=== PATIENT | female | born 1980 | race Caucasian/White ===

== ENCOUNTER 2024-12-13 22:29 | Emergency (ER) | payer SELFPAY ==
[2024-12-13 22:31] VITALS: BP 146/103; PULSE 91; RESP 17; TEMP 36.3; O2SAT 100
--- OUTSIDE RECORDS SUMMARY | 2024-12-14 00:12 | XMS_ITS ---
Author Organization Unknown ENCOUNTERS Encounter Performer Location Date Diagnosis Diagnosis Status Pre Admit Donkathy Santos [facility] [address] [place] [address] [id number] Emergency [facility] [address] [place] [address] [id number] *Note: Encounters from your own facility or health system may be excluded. Allergies, Adverse Reactions, Alerts Allergen Type Severity Identification Date Penicillins drug allergy 2 [id number] strawberry food allergy 4 [id number] NSAIDS (Non-Steroidal Anti-Inflamma drug allergy 4 [id number] Medications Name Date Quantity Days Supplied GPI Number
[2024-12-14 01:08] LABS: Add Urine Microscopic? YES; Appearance Urine Cloudy (Clear); Glucose Urine UA Negative (Negative); Leukocyte Esterase Ur 3+ LEU/UL (Negative); Need Manual Microscopic Reviewed; Nitrate Urine Negative (Negative); Specific Grav Ur 1.020 (1.001-1.035)
[2024-12-14 01:18] LABS: Hematocrit 33.6 % (37.0-47.0); Hemoglobin 11.4 g/dL (12.0-15.0); Immature Granulocyte Percent A 0.3 % (0-0.5); Lymphocytes Absolute Auto 1.70 K/mm3 (0.9-3.2); Mean Corpuscular HGB Conc 33.9 g/dl (32-36); Mean Corpuscular Hemoglobin 30.2 pg (26-34); Mean Corpuscular Volume 89.1 fl (80-100); Nucleated Red Blood Cells Absolute Auto 0.000 K/mm3 (0.0-0.012); Nucleated Red Blood Cells Perc 0.0 % (0.0-0.2); Platelet Count Result 284 k/mm3 (150-375); Red Blood Count 3.77 M/mm3 (4.2-5.4); White Blood Count 6.2 K/mm3 (4.5-10.0)
[2024-12-14 01:24] LABS: Alanine Aminotransferase 20 U/L (6-35); Albumin Level 4.4 g/dL (3.5-5.1); Alkaline Phosphatase 64 U/L (38-126); Anion Gap 10 mmol/L (4-12); Aspartate Amino Transferase 29 U/L (14-36); Bilirubin,Total 0.4 mg/dL (0.2-1.3); Blood Urea Nitrogen 12 mg/dL (7-17); Calcium 9.5 mg/dL (8.4-10.2); Carbon Dioxide 22 mmol/L (22-30); Chloride 103 mmol/L (98-107); Estimated CRCL calculation 109 ml/min; Estimated Glomerular Filt Rate > 60; Glucose 100 mg/dL (65-110); Potassium 4.0 mmol/L (3.4-5.0); Sodium 135 mmol/L (137-145); Total Protein 8.1 g/dL (6.3-8.2)
[2024-12-14 01:34] LABS: BEDSIDEPREGUCG Negative (Negative)
--- NOTE | 2024-12-14 01:34 | ED.FEMALEGU ---
HPI - Female Genitourinary General Chief complaint: Urogenital-Female Stated complaint: n/v/ blood in urine Time Seen by Provider: 12/13/24 23:43 History of Present Illness HPI Narrative: 44-year-old female with a history of previous kidney stones requiring stent placement. She presents the emergency room with left-sided flank pain radiating around to her left lower quadrant. States it feels very similar to her last kidney stone. She was hospitalized with last kidney stone and septic according to her 20 years ago. States she is also having some hematuria. No fever chills. No other symptoms. No traumatic injuries. Denies chance of . She was otherwise in her normal state of health. Related Data Allergies Allergy/AdvReac Type Severity Reaction Status Date / Time NSAIDS (Non-Steroidal Allergy Severe Swelling Verified 12/13/24 22:35 Anti-Inflamma of Lip/Tongue/Throat strawberry Allergy Severe Swelling Verified 12/13/24 22:35 of Lip/Tongue/Throat Penicillins AdvReac Mild Hives Verified 12/13/24 22:35 Review of Systems Review of Systems: As reviewed above in HPI Exam Narrative: GENERAL: Uncomfortable appearing but not any acute distress HEAD: [Normocephalic, atraumatic.] EYES: [PERRLA and EOMI.] ENT: Nares clear, no rhinorrhea or epistaxis. Mucous membranes moist. NECK: Supple. CHEST: [Clear to auscultation. No respiratory distress.] HEART: [Regular rate and rhythm]. No murmur heard. [Normal peripheral pulses.] ABDOMEN: [Soft, nondistended], reproducible pain left CVA and left lower quadrant, [No rigidity or guarding] EXTREMITIES: Normal range of motion. [No edema.] SKIN: Warm, dry, no rash. NEURO: [No focal deficits]. Alert and oriented [x3.] PSYCH: [Normal mood and affect.] Course Vital Signs Vital signs: Vital Signs Temperature 36.3 C L 12/13/24 22:31 Pulse Rate 91 12/13/24 22:31 Respiratory Rate 17 12/13/24 22:31 Blood Pressure 146/103 H 12/13/24 22:31 Pulse Oximetry 100 12/13/24 22:31 Oxygen Delivery Room Air 12/13/24 22:31 Temperature 36.3 C L 12/13/24 22:31 Pulse Rate 91 12/13/24 22:31 Respiratory Rate 17 12/13/24 22:31 Blood Pressure 146/103 H 12/13/24 22:31 Pulse Oximetry 100 12/13/24 22:31 Oxygen Delivery Room Air 12/13/24 22:31 MDM - Female Genitourinary MDM Narrative Medical decision making narrative: 44-year-old female with a history of previous kidney stones requiring stent placement. She presents the emergency room with left-sided flank pain radiating around to her left lower quadrant. States it feels very similar to her last kidney stone. She was hospitalized with last kidney stone and septic according to her 20 years ago. States she is also having some hematuria. No fever chills. No other symptoms. No traumatic injuries. Denies chance of . She was otherwise in her normal state of health. Patient has prescriptions for pain medications antibiotics by her primary care provider. Patient has reassuring vital signs with any fever, tachycardia or hypoxia. Normal blood pressure. Reproducible pain in the left CVA and left lower quadrant. There is very similar to her previous kidney stone and likely the source for pain today. Patient is also having hematuria which could be a sign of a kidney stone or potential cystitis or urinary tract infection. Other considerations are pyelonephritis, diverticulitis, intra-abdominal abscess. CT scan without contrast obtained, she was given Dilaudid and Zofran as well as a fluid bolus. Urinalysis, test laboratory studies ordered. Patient had interval improvement with Dilaudid but requested Benadryl which was provided IV. Patient wanted additional pain control quickly thereafter and subsequently refused CT scan multiple times despite needing diagnostic scan for continued workup and treatment. Laboratory studies showed no leukocytosis or significant anemia. Normal platelet count. Electrolytes are normal, kidney function normal, glucose and LFTs normal. Urinalysis shows some blood and 2+ bacteria but contaminated with squamous cells. Given a dose of Rocephin. test negative. Patient refused CT scan again and signed out AMA. Return instructions provided and she has pain medications and antibiotics that her primary care provider has prescribed. Medical Records Attestation: I reviewed the patient's medical records. Lab Data Attestation: I reviewed the patient's lab results. 12/14/24 01:06 12/14/24 01:06 Labs: Lab Results 12/14/24 12/14/24 12/14/24 Range/Units 00:39 00:55 01:06 WBC 6.2 (4.5-10.0) K/mm3 RBC 3.77 L (4.2-5.4) M/mm3 Hgb 11.4 L (12.0-15.0) g/dL Hct 33.6 L (37.0-47.0) % MCV 89.1 (80-100) fl MCH 30.2 (26-34) pg MCHC 33.9 (32-36) g/dl RDW 13.6 (11.5-14.5) % Plt Count 284 (150-375) k/mm3 MPV 10.0 (7.4-10.4) fl Immature Gran % (Auto) 0.3 (0-0.5) % Neut % (Auto) 55.1 (45.5-73.1) % Lymph % (Auto) 27.6 (18.3-44.2) % [place] % (Auto) 11.3 H (2.6-8.5) % Eos % (Auto) 5.2 H (0-4.4) % Baso % (Auto) 0.5 (0.2-1.2) % Lymph # (Auto) 1.70 (0.9-3.2) K/mm3 [place] # (Auto) 0.7 H (0.1-0.6) K/mm3 Eos # (Auto) 0.3 (0-0.3) K/mm3 Baso # (Auto) 0.0 (0.0-0.1) K/mm3 Abs Immat Gran (auto) 0.02 (0.00-0.031) K/mm3 Absolute Neuts (auto) 3.4 (1.3-6.7) K/mm3 Absolute Nucleated RBC 0.000 (0.0-0.012) K/mm3 Nucleated RBC % 0.0 (0.0-0.2) % Sodium 135 L (137-145) mmol/L Potassium 4.0 (3.4-5.0) mmol/L Chloride 103 (98-107) mmol/L Carbon Dioxide 22 (22-30) mmol/L Anion Gap 10 (4-12) mmol/L BUN 12 (7-17) mg/dL Creatinine 0.71 (0.7-1.0) mg/dL Estim Creat Clear Calc 109 ml/min Estimated GFR > 60 (59 - ) Glucose 100 (65-110) mg/dL Calcium 9.5 (8.4-10.2) mg/dL Total Bilirubin 0.4 (0.2-1.3) mg/dL AST 29 (14-36) U/L ALT 20 (6-35) U/L Alkaline Phosphatase 64 (38-126) U/L Total Protein 8.1 (6.3-8.2) g/dL Albumin 4.4 (3.5-5.1) g/dL Urine Color [place] H (Yellow) Urine Appearance Cloudy H (Clear) Urine pH 6.0 (5.0-9.0) Ur Specific [place] 1.020 (1.001-1.035) Urine Protein 1+ H (Negative) mg/dL Urine Glucose (UA) Negative (Negative) mg/dL Urine Ketones Negative (Negative) mg/dL Ur Blood (Man) 3+ H (Negative) Urine Nitrate Negative (Negative) Urine Bilirubin Negative (Negative) Urine Urobilinogen 0.2 (<2.0) mg/dL Add Ur Microanalysis Reviewed Leukocyte Esterase Rfl 3+ H (Negative) ERIN/UL Urine RBC >100 H (0-2) /hpf Urine WBC 51-100 H (0-3) /hpf Ur Squamous Epith Cells Moderate (Few) /hpf Urine Bacteria 2+ H /hpf Urine Casts 3-5 POC Urine HCG, Qual Negative (Negative) Discharge Plan Discharge Clinical Impression: Acute left flank pain, History of kidney stones Patient Disposition: Left Against Medical Advice Condition: Stable Patient Language: Kitt[place] Follow-up/Referrals: Rosalina Winn [Other]
[2024-12-14] MEDS: cefTRIAXone 1 GM in SODIUM CHLORIDE 0.9% IV 50 ML 100 ML IVPB (01:44)
[2024-12-14] MEDS: ONDANSETRON INJ 4 MG/2 ML VIAL IV PUSH (01:45)
[2024-12-14] MEDS: LACTATED RINGERS 1,000 ML 999 ML IV CONT (01:45)
[2024-12-14] MEDS: HYDROmorphone HCL INJ (*CRX) 2 MG/ML VIAL 1 MG IV PUSH (01:45)
== END 2024-12-14 03:21 | disposition left against medical advice (07) ==
LOC: ANHED 12-14 00:10
PROVIDERS: Emergency Provider Student in an Organized Health Care Education/Training Program
DX: R10.32 Left lower quadrant pain (principal); Z87.442 Personal history of urinary calculi
CPT/HCPCS: 36415; 80053; 81001; 81025; 85025; 96361; 96365; 96375; 99284; J0696; J1171; J1200; J2405; J7120